=== PATIENT | female | born 1975 | race Caucasian/White ===

== ENCOUNTER 2024-09-11 20:14 | Emergency (ER) | payer OTHER, SELFPAY ==
[2024-09-11 20:29] VITALS: BP 142/79; PULSE 92; RESP 18; TEMP 36.4; O2SAT 99
[2024-09-12 00:36] LABS: Basophils Absolute Auto 0.1 K/mm3 (0.0-0.1); Basophils Percent Auto 0.8 % (0.2-1.2); Eosinophils Absolute Auto 0.3 K/mm3 (0-0.3); Eosinophils Percent Auto 4.6 % (0-4.4); Hematocrit 35.2 % (37.0-47.0); Hemoglobin 11.6 g/dL (12.0-15.0); Immature Granulocyte Absolute 0.01 K/mm3 (0.00-0.031); Immature Granulocyte Percent A 0.1 % (0-0.5); Lymphocytes Absolute Auto 2.37 K/mm3 (0.9-3.2); Lymphocytes Percent Auto 32.2 % (18.3-44.2); Mean Corpuscular Hemoglobin 30.1 pg (26-34); Mean Corpuscular Volume 91.2 fl (80-100); Mean Platelet Volume 10.4 fl (7.4-10.4); Monocytes Absolute Auto 0.6 K/mm3 (0.1-0.6); Neutrophils Percent Auto 54.3 % (45.5-73.1); Platelet Count Result 296 k/mm3 (150-375); Red Blood Count 3.86 M/mm3 (4.2-5.4); Red Cell Distribution Width 12.9 % (11.5-14.5); White Blood Count 7.4 K/mm3 (4.5-10.0)
--- NOTE | 2024-09-12 00:39 | ED_ITS ---
HPI - Extremity Injury (Lower) General Chief Complaint: Extremity Injury, Lower Stated Complaint: R calve swellig/pain Time Seen by Provider: 09/11/24 23:58 History of Present Illness HPI Narrative: Patient is a 48-year-old female who presents ER with swelling of the right calf. Worsening over last 3 days. Associated with an achy pain. No bruising. Denies chest pain or shortness of breath or hemoptysis. She is not on any hormones. No recent long distance travel or injury slow or surgery. No history of DVT/PE. Does not have a PCP. Related Data Allergies Allergy/AdvReac Type Severity Reaction Status Date / Time No Known Allergies Allergy Unverified 11/20/17 19:21 Review of Systems Review of Systems: All systems reviewed & are unremarkable except as noted in HPI and below Constitutional: Constitutional: Reports no additional constitutional complaints Cardiovascular: Cardiovascular: Reports no additional cardiovascular co mplaints Respiratory: Respiratory: Reports no additional respiratory complaints Musculoskeletal: Musculoskeletal: Reports no additional musculoskeletal complaints [facility] Past Medical History Medical History (Updated 09/12/24 @ 01:36 by Mata Aguilar MD) Healthy female adult Surgical History Surgical History (Updated 09/12/24 @ 00:40 by Mata Aguilar MD) No pertinent past surgical history Social History Social History (Updated 09/12/24 @ 00:40 by Mata Aguilar MD) Smoking status: Former smoker Second hand tobacco smoke exposure: No Smoking end date: 10/22/12 Alcohol intake: never Substance use type: marijuana Exam Narrative: GENERAL: Well-appearing, well-nourished, and in no acute distress. HEAD: Normocephalic, atraumatic. ENT: Mucous membranes moist. CHEST: Clear to auscultation. No respiratory distress. HEART: Regular rate and rhythm. Normal peripheral pulses. EXTREMITIES: Normal range of motion. No edema. Right calf is markedly enlarged compared to left without pitting edema. Negative Homans sign. SKIN: Warm, dry, no rash. NEURO: Alert and oriented x3. PSYCH: Normal mood and affect. Course Course Emergency Course: Exam and elevated D-dimer both concerning for DVT. Patient will receive a dose of Lovenox for treatment until an ultrasound can be performed. We have scheduled her for a 7:00 a.m. appointment. She will need to return to the ER for re-evaluation if it is positive for DVT. Discussed bleeding wrist. Discharge. Vital Signs Vital signs: Vital Signs Temperature 97.6 F 09/11/24 20:29 Pulse Rate 92 09/11/24 20:29 Respiratory Rate 18 09/11/24 20:29 Blood Pressure 142/79 H 09/11/24 20:29 Pulse Oximetry 99 09/11/24 20:29 Oxygen Delivery Room Air 09/11/24 20:29 Temperature 97.6 F 09/11/24 20:29 Pulse Rate 92 09/11/24 20:29 Respiratory Rate 18 09/11/24 20:29 Blood Pressure 142/79 H 09/11/24 20:29 Pulse Oximetry 99 09/11/24 20:29 Oxygen Delivery Room Air 09/11/24 20:29 MDM - Extremity Injury (Lower) Lab Data 09/12/24 00:31 09/12/24 00:31 Labs: Lab Results 09/12/24 Range/Units 00:31 WBC 7.4 (4.5-10.0) K/mm3 RBC 3.86 L (4.2-5.4) M/mm3 Hgb 11.6 L (12.0-15.0) g/dL Hct 35.2 L (37.0-47.0) % MCV 91.2 (80-100) fl MCH 30.1 (26-34) pg MCHC 33.0 (32-36) g/dl RDW 12.9 (11.5-14.5) % Plt Count 296 (150-375) k/mm3 MPV 10.4 (7.4-10.4) fl Immature Gran % (Auto) 0.1 (0-0.5) % Neut % (Auto) 54.3 (45.5-73.1) % Lymph % (Auto) 32.2 (18.3-44.2) % [place] % (Auto) 8.0 (2.6-8.5) % Eos % (Auto) 4.6 H (0-4.4) % Baso % (Auto) 0.8 (0.2-1.2) % Lymph # (Auto) 2.37 (0.9-3.2) K/mm3 [place] # (Auto) 0.6 (0.1-0.6) K/mm3 Eos # (Auto) 0.3 (0-0.3) K/mm3 Baso # (Auto) 0.1 (0.0-0.1) K/mm3 Abs Immat Gran (auto) 0.01 (0.00-0.031) K/mm3 Absolute Neuts (auto) 4.0 (1.3-6.7) K/mm3 Absolute Nucleated RBC 0.000 (0.0-0.012) K/mm3 Nucleated RBC % 0.0 (0.0-0.2) % PT 13.3 (11.1-14.7) Seconds INR 1.0 APTT 34.9 (22.3-36.8) Seconds D-Dimer 1.34 H (<0.48) ug/mL Sodium 138 (137-145) mmol/L Potassium 4.3 (3.4-5.0) mmol/L Chloride 107 (98-107) mmol/L Carbon Dioxide 28 (22-30) mmol/L Anion Gap 3 L (4-12) mmol/L BUN 25 H (7-17) mg/dL Creatinine 0.70 (0.7-1.0) mg/dL Estim Creat Clear Calc 106 ml/min Estimated GFR > 60 (59 - ) Glucose 116 H (65-110) mg/dL Calcium 8.7 (8.4-10.2) mg/dL Discharge Plan Discharge Clinical Impression: Leg swelling Patient Disposition: Home, Self-Care Condition: Stable Instructions: Antibiotic Form, Deep Vein Thrombosis (ED) Additional Instructions: It is possible you have a blood clot in her leg. Your given Lovenox. Your scheduled to have an ultrasound at 7:00 a.m.. Return at 6:45 a.m. to imaging. If your ultrasound is positive for DVT return to the ER to be started on a blood thinner. Other Ambulatory Orders: US venous doppler LE RT (Routine) Timeframe: 20240912 Facility: [facility] - Location: [facility] Imaging Ordered By: Mata Aguilar Follow-up/Referrals: PHYSICIAN,[employer]AR SALES ASSESSOR [Primary Care Provider] - Clint Luna MD [Physician] - 1 Week
[2024-09-12 00:47] LABS: Anion Gap 3 mmol/L (4-12); Blood Urea Nitrogen 25 mg/dL (7-17); Calcium 8.7 mg/dL (8.4-10.2); Carbon Dioxide 28 mmol/L (22-30); Chloride 107 mmol/L (98-107); Estimated CRCL calculation 106 ml/min; Estimated Glomerular Filt Rate > 60; Glucose 116 mg/dL (65-110); Potassium 4.3 mmol/L (3.4-5.0); Prothrombin Time 13.3 Seconds (11.1-14.7); Sodium 138 mmol/L (137-145)
[2024-09-12 00:48] LABS: Partial Thromboplastin Time 34.9 Seconds (22.3-36.8)
[2024-09-12 01:13] LABS: D Dimer 1.34 ug/mL (<0.48)
[2024-09-12] MEDS: ENOXAPARIN 100 MG/ML SYRINGE SUB-Q (01:53)
[2024-09-12 01:57] VITALS: BP 136/82; PULSE 67; RESP 15; O2SAT 100
== END 2024-09-12 01:58 | disposition home or self-care (01) ==
PROVIDERS: Emergency Provider Emergency Medicine
DX: R22.41 Localized swelling, mass and lump, right lower limb (principal); Z87.891 Personal history of nicotine dependence
CPT/HCPCS: 36415; 80048; 85025; 85380; 85610; 85730; 96372; 99283; J1650

== ENCOUNTER 2024-09-12 07:06 | Outpatient (CLI) | payer OTHER, SELFPAY ==
--- NOTE | ~2024-09-12 | US_ITS ---
EXAMINATION: US venous doppler LE RT DATE: 09/12/2024 07:53 INDICATION: Right lower limb pain and swelling. Other specified soft tissue disorders. TECHNIQUE: Grayscale ultrasound images without and with compression and Doppler ultrasound images of the right lower extremity veins were obtained. COMPARISON: None. FINDINGS: The visualized portions of right common femoral vein, profunda (deep) femoral vein, femoral vein, pop liteal vein, peroneal trunk, posterior tibial veins, peroneal veins, gastrocnemius vein and greater s aphenous vein outflow are patent. There is a 5.4 x 1.0 x 1.7 cm anechoic fluid collection along anter ior inferior knee along a band like area of the patella and anterior tibial tuberosity suspicious for bursitis with differential including hematoma in the setting of trauma or abscess in the proper clin ical setting. IMPRESSION: 1. No deep venous thrombosis in the right lower limb. 2. 5.4 x 1.0 x 1.7 cm anterior fluid collection along the anteroinferior knee which could represent p repatellar or pretibial bursitis, hematoma or abscess in the appropriate clinical settings. Reviewed, dictated and finalized at location [facility]. [employer] IMPRESSION: 1. No deep venous thrombosis in the right lower limb. 2. 5.4 x 1.0 x 1.7 cm anterior fluid collection along the anteroinferior knee w hich could represent prepatellar or pretibial bursitis, hematoma or abscess in the appropriate clinical settings.
== END 2024-09-12 07:07 | disposition home or self-care (01) ==
PROVIDERS: Visit Provider Emergency Medicine
DX: M79.89 Other specified soft tissue disorders (principal)
CPT/HCPCS: 93971

== ENCOUNTER 2024-09-12 09:13 | Emergency (ER) | payer OTHER, SELFPAY ==
[2024-09-12 09:13] VITALS: BP 121/85; PULSE 56; RESP 16; TEMP 36.5; O2SAT 98
--- NOTE | 2024-09-12 10:03 | ED_ITS ---
HPI - Extremity Problem General Chief complaint: Extremity Problem,Nontraumatic Stated complaint: DVT Time Seen by Provider: 09/12/24 09:37 History of Present Illness HPI Narrative: Patient is a 48-year-old female who presents to the ER with complaints of right lower extremity swelling. She was here in the ER last night. The provider did blood work which indicated an elevated D-dimer. Patient was discharged and came back for a Doppler ultrasound of her right lower extremity this morning. The ultrasound results showed no signs of a DVT. Patient returns to the ER this morning for further follow-up. She denies any recent fevers, redness, warmth to the extremity, shortness of breath or chest pain. Related Data Allergies Allergy/AdvReac Type Severity Reaction Status Date / Time No Known Allergies Allergy Unverified 11/20/17 19:21 Review of Systems Review of Systems: All systems reviewed & are unremarkable except as noted in HPI and below PMFSH Past Medical History Medical History Healthy female adult Surgical History Surgical History No pertinent past surgical history Social History Social History Smoking status: Former smoker Second hand tobacco smoke exposure: No Smoking end date: 10/22/12 Alcohol intake: never Substance use type: marijuana Exam Narrative: GENERAL: Well appearing, well-nourished, non-toxic, in no acute distress. HEAD: Normocephalic, atraumatic. NECK: Supple. No adenopathy, no masses. RESPIRATORY: Airway patent, respirations nonlabored. Clear to auscultation bilaterally, no rales, rhonchi, wheezing. CARDIOVASCULAR: Bradycardia without murmurs, rubs, or gallops. Peripheral pulses 2+ and equal bilaterally. ABDOMINAL: Soft, nontender, nondistended, no hepatosplenomegaly. Normoactive BS. MUSCULOSKELETAL: Moves all extremities. Strength/ROM intact. RLE edema, non- pitting, no redness, no palpable mass. Full ROM. SKIN: Warm, dry, normal color. No rashes. NEURO: A&O X3. Speech clear. Cranial nerves II-XII grossly intact. No ataxic movements. PSYCHIATRIC: Appropriate mood and affect. Normal interaction. Course Vital Signs Vital signs: Vital Signs Temperature 36.5 C 09/12/24 09:13 Pulse Rate 56 L 09/12/24 09:13 Respiratory Rate 16 09/12/24 09:13 Blood Pressure 121/85 09/12/24 09:13 Pulse Oximetry 98 09/12/24 09:13 Oxygen Delivery Room Air 09/12/24 09:13 Temperature 36.5 C 09/12/24 09:13 Pulse Rate 56 L 09/12/24 09:13 Respiratory Rate 16 09/12/24 09:13 Blood Pressure 121/85 09/12/24 09:13 Pulse Oximetry 98 09/12/24 09:13 Oxygen Delivery Room Air 09/12/24 09:13 MDM - Extremity (Nontraumatic) MDM Narrative Medical decision making narrative: Patient is a 48-year-old female who presents to the ER with complaints of right lower extremity swelling. She was here in the ER last night. The provider did some blood work which indicated an elevated D-dimer. Patient was discharged and came back for a Doppler ultrasound of her right lower extremity this morning. The ultrasound results showed no signs of a DVT. Patient returns to the ER this morning for further follow-up. She denies any recent fevers, redness, warmth to the extremity, shortness of breath or chest pain. Labs Ordered: None needed Imaging Ordered: None needed Results: EKG indicated sinus bradycardia Diagnosis: RLE swelling without concern for DVT Risks: Wells Criteria for PE score: 3, indicating unlikely PE diagnosis Disposition/Plan: Results shared with patient. Patient continues to have very little discomfort with her RLE swelling. She was advised to rest and elevate her right lower extremity when she is discharged home. Discharge Plan Discharge Clinical Impression: Lower extremity edema, Leg swelling Patient Disposition: Home, Self-Care Condition: Stable Instructions: Antibiotic Form, Leg Edema (ED) Additional Instructions: Your ultrasound shows no indication of a the vein thrombosis. Please follow-up with your primary care provider. Return to the ER with any worsening symptoms, chest pain, shortness of breath. Tried to rest and keep your right lower extremity elevated when you are lying down. Follow-up/Referrals: UNKNOWN,DOCTOR [Primary Care Provider] - Time of Disposition: 11:15
--- NOTE | 2024-09-12 10:13 | ECG_ITS ---
Test Date: 2024-09-12 10:23:07 Measurements Intervals [place] Rate: 48 P: 31 ID: [id number] QRS: 49 QRSD: 93 T: 45 QT: 435 QTc: 391 Interpretive Statements SINUS BRADYCARDIA LOW QRS VOLTAGE IN PRECORDIAL LEADS ABNORMAL ECG No previous ECG available for comparison Electronically Signed On 09-12-2024 10:33:19 CLOTH INSPECTOR by Zan Lam D.O.
[2024-09-12 11:23] VITALS: BP 117/77; PULSE 55; RESP 18; TEMP 36.6; O2SAT 98
== END 2024-09-12 11:24 | disposition home or self-care (01) ==
PROVIDERS: Emergency Provider Registered Nurse
DX: R60.9 Edema, unspecified (principal); Z87.891 Personal history of nicotine dependence
CPT/HCPCS: 93005; 99283